=== PATIENT | male | born 1965 | race Caucasian/White ===

== ENCOUNTER → 2024-07-12 08:07 | Outpatient (REF) | payer OTHER, SELFPAY | LOC: RCS 08:07 | PROVIDERS: ATTENDING PHYSICIAN Internal Medicine Interventional Cardiology; FAMILY PHYSICIAN Family Medicine | DX: R00.2 Palpitations (principal); R03.0 Elevated blood-pressure reading, without diagnosis of hypertension; R07.89 Other chest pain | CPT/HCPCS: 93306 ==

== ENCOUNTER → 2024-07-18 15:09 | Outpatient (REF) | payer OTHER, SELFPAY | LOC: RCS 15:09 | PROVIDERS: ATTENDING PHYSICIAN Internal Medicine Interventional Cardiology; FAMILY PHYSICIAN Family Medicine | DX: R07.89 Other chest pain (principal) | CPT/HCPCS: 93017 ==